=== PATIENT | male | born 1980 | race Caucasian/White ===

== ENCOUNTER → 2019-04-02 | Outpatient (CLI) | payer OTHER ==
--- NOTE | 2019-04-02 21:46 | REP ---
Clinical: Preoperative assessment with history of asthma. Comparison: None . Technique: PA and lateral. Findings: The mediastinum and cardiac silhouette are normal. The lung peña are clear and without acute consolidation, effusion, or pneumothorax. The skeletal structures are intact and normal. Impression: 1. No acute cardiopulmonary process. Electronically Signed by Shawn Gloria MD 04/02/2019 09:38 P
== END ==
LOC: M SMT 14:03
PROVIDERS: ATTEND Nurse Practitioner Family
DX: Z01.811 Encounter for preprocedural respiratory examination (principal)

== ENCOUNTER → 2019-04-22 | Outpatient (CLI) | payer OTHER ==
[~2019-04-22] MED LIST: METHACHOLINE KIT (J7674) INH ONE
--- NOTE | 2019-04-22 14:46 | PFTRPT ---
Height: 71.00 Inches Weight: 230.00 Lbs BSA: 2.24 Diagnosis: Z01.811 DATE OF PROCEDURE: 04/22/2019 ORDERED BY: XENIA Hahn INTERPRETATION: Study of excellent technical quality. Under protocol, methacholine was administered. At a dose of 2.5 mg or 13.875 CDUs, a 30% decline in the FEV1 was noted. PC of 0.69 is significant. Flow rates did return to baseline post bronchodilator administration. IMPRESSION: Positive methacholine challenge study. MTDD
== END ==
LOC: M CARPUL 12:54
PROVIDERS: ATTEND Nurse Practitioner Family
DX: Z01.811 Encounter for preprocedural respiratory examination (principal)

== ENCOUNTER → 2019-05-23 | Outpatient (CLI) | payer OTHER ==
--- NOTE | 2019-05-23 18:25 | REP ---
CT of the chest without IV contrast for nonspecific abnormality along: Comparison is the PA and lateral plain film study dated 04/02/2019. There are no comparison chest CTs. There are no infiltrates or effusions. There are no masses or nodules. The lung peña otherwise clear. There is no mediastinal or axillary lymph node enlargement. In the absence of IV contrast the study is insensitive for hilar lymph node enlargement. The unenhanced thoracic aorta is unremarkable. Cardiac size is normal. There is no pericardial effusion. The visualized unenhanced upper abdominal contents are unremarkable. There is no adrenal mass. Impression: Essentially negative CT scan of the chest without IV contrast. Electronically Signed by Fabrice Butcher MD 05/23/2019 06:17 P
== END ==
LOC: M RAD 17:34
PROVIDERS: ATTEND Nurse Practitioner Family
DX: Z87.09 Personal history of other diseases of the respiratory system (principal)